=== PATIENT | female | born 2000 | race African-American/Black ===

== ENCOUNTER 2022-04-15 13:00 | Emergency (ER) | payer OTHER, SELFPAY ==
--- NOTE | ~2022-04-15 | US_ITS ---
EXAMINATION: US pelvic complete w TV DATE: 04/15/2022 13:58 INDICATION: Left adnexal pain TECHNIQUE: Multiple transabdominal and endovaginal sonographic images of the pelvis were obtained. COMPARISON: None. FINDINGS: The uterus measures 5.9 x 4.2 x 2.7 cm. The endometrial complex measures 7 mm. A nabothian cyst is noted in the cervix. The right ovary measures 2.4 x 1.7 x 1.7 cm. The left ovary measures 1.9 x 2.2 x 2.0 cm. There is normal vascular flow in the ovaries. There is no free fluid in the pelvis. There is questionable wall thickening of the urinary bladder. IMPRESSION: 1. Possible wall thickening of the urinary bladder which could be due to incomplete distention. Consi cooper correlation with urinalysis. Reviewed, dictated and finalized at location B. ITECTURE TECHNICIAN IMPRESSION: 1. Possible wall thickening of the urinary bladder which could be due to incomp lete distention. Consider correlation with urinalysis.
[2022-04-15 13:06] VITALS: BP 131/69; PULSE 85; RESP 16; TEMP 36.4; O2SAT 100
--- NOTE | 2022-04-15 13:32 | PC.NURSE ---
Patient taken to ultrasound
[2022-04-15 14:10] LABS: Basophils Percent Auto 0.6 % (0.2-1.2); Eosinophils Absolute Auto 0.2 K/mm3 (0-0.3); Eosinophils Percent Auto 2.7 % (0-4.4); Hematocrit 36.9 % (37.0-47.0); Hemoglobin 12.1 g/dL (12.0-15.0); Immature Granulocyte Absolute 0.01 K/mm3 (0.00-0.031); Immature Granulocyte Percent A 0.1 % (0-0.5); Lymphocytes Absolute Auto 2.43 K/mm3 (0.9-3.2); Lymphocytes Percent Auto 36.2 % (18.3-44.2); Mean Corpuscular HGB Conc 32.8 g/dl (32-36); Mean Corpuscular Hemoglobin 31.1 pg (26-34); Mean Corpuscular Volume 94.9 fl (80-100); Monocytes Absolute Auto 0.5 K/mm3 (0.1-0.6); Monocytes Percent Auto 7.2 % (2.6-8.5); Neutrophils Absolute Auto 3.6 K/mm3 (1.3-6.7); Neutrophils Percent Auto 53.2 % (45.5-73.1); Platelet Count Result 398 k/mm3 (150-375); Red Blood Count 3.89 M/mm3 (4.2-5.4); Red Cell Distribution Width 12.1 % (11.5-14.5); White Blood Count 6.7 K/mm3 (4.5-10.0)
[2022-04-15 14:16] LABS: Anion Gap 8 mmol/L (8-16); Blood Urea Nitrogen 7 mg/dL (7-17); Calcium 8.8 mg/dL (8.4-10.2); Carbon Dioxide 26 mmol/L (22-30); Chloride 105 mmol/L (98-107); Estimated CRCL calculation 84 ml/min; Estimated Glomerular Filt Rate > 60; Glucose 96 mg/dL (65-110); Potassium 3.7 mmol/L (3.4-5.0); Sodium 139 mmol/L (137-145)
[2022-04-15 14:19] LABS: Appearance Urine Slightly Cloudy (Clear); Bilirubin Urine Negative (Negative); Blood Urine 3+ (Negative); Color Urine Light Yellow (Yellow); Glucose Urine UA Negative (Negative); Ketones Urine Negative (Negative); Leukocyte Esterase Ur Negative LEU/UL (Negative); Nitrate Urine Negative (Negative); Protein Urine Negative (Negative); Urobilinogen Urine 0.2 mg/dL (<2.0)
--- NOTE | 2022-04-15 14:28 | PC.NURSE ---
Prior to giving IV Toradol, patient states she cannot take NSAIDS due to her Lupus, SAMANTHA Reynaga notified.
[2022-04-15 14:29] LABS: Bacteria Urine Trace /hpf; Mucus Urine Rare /lpf; RBC Urine >75 /hpf (0-2); Squamous Epithelial Cell Urine Occasional /hpf (Few)
[2022-04-15 14:43] LABS: Add Urine Microscopic? YES
[2022-04-15] MEDS: ACETAMINOPHEN 500 MG TABLET 1000 MG PO (15:02)
[2022-04-15 15:32] VITALS: TEMP 36.4
--- NOTE | 2022-04-15 15:45 | ED.GENADULT ---
HPI - General Adult General Chief complaint: Vaginal Bleeding Stated complaint: abd pain/vag bleeding Time Seen by Provider: 04/15/22 13:11 History of Present Illness HPI narrative: Patient is a 22-year-old female who presents ER with vaginal bleeding. Ongoing for last 4 days. Unsure if she is as her LMP was in January. She is having abdominal cramping. No dysuria fevers or chills. No abnormal vaginal discharge. Cannot report any alleviating factors. No radiation of pain. Related Data Allergies Allergy/AdvReac Type Severity Reaction Status Date / Time No Known Allergies Allergy Verified 04/15/22 13:22 Review of Systems Review of Systems: All systems reviewed & are unremarkable except as noted in HPI and below Constitutional: Constitutional: Denies chills, Denies fatigue and Denies fever(s) ENT: Denies nasal congestion and Denies sore throat Cardiovascular: Cardiovascular: Denies chest pain, Denies radiating jaw, neck or arm pain and Denies slow heart rate Respiratory: Respiratory: Denies cough and Denies dyspnea Gastrointestinal: Gastrointestinal: Reports abdominal pain, Denies diarrhea, Denies nausea and Denies vomiting Genitourinary: Genitourinary: Reports abnormal vaginal bleeding, Denies nocturia, Denies dysuria and Reports pelvic pain PMFSH Past Medical History Medical History (Updated 04/15/22 @ 15:54 by Hood Reynaga MD) Healthy female adult Surgical History Surgical History (Updated 04/15/22 @ 15:47 by Hood Reynaga MD) No history of previous surgery Social History Social History (Updated 04/15/22 @ 15:47 by Hood Reynaga MD) Smoking status: Never smoker Exam Narrative: GENERAL: Well-appearing, well-nourished, and in no acute distress. HEAD: Normocephalic, atraumatic. ENT: Mucous membranes moist. CHEST: Clear to auscultation. No respiratory distress. HEART: Regular rate and rhythm. Normal peripheral pulses. ABDOMEN: Soft, mild tenderness left adnexal/lower quadrant area, nondistended. EXTREMITIES: Normal range of motion. No edema. SKIN: Warm, dry, no rash. NEURO: Alert and oriented x3. PSYCH: Normal mood and affect. Course Course Emergency Course: Patient informed of results. Will treat for UTI. No torsion or ruptured cyst. Vital Signs Vital signs: Vital Signs Temperature 97.5 F L 04/15/22 13:06 Pulse Rate 85 04/15/22 13:06 Respiratory Rate 16 04/15/22 13:06 Blood Pressure 131/69 04/15/22 13:06 Pulse Oximetry 100 04/15/22 13:06 Oxygen Delivery Room Air 04/15/22 13:06 Temperature 97.5 F L 04/15/22 13:06 Pulse Rate 85 04/15/22 13:06 Respiratory Rate 16 04/15/22 13:06 Blood Pressure 131/69 04/15/22 13:06 Pulse Oximetry 100 04/15/22 13:06 Oxygen Delivery Room Air 04/15/22 13:06 Medical Decision Making Vital Signs Vital Signs: Vital Signs Temperature 97.5 F L 04/15/22 13:06 Pulse Rate 85 04/15/22 13:06 Respiratory Rate 16 04/15/22 13:06 Blood Pressure 131/69 04/15/22 13:06 Pulse Oximetry 100 04/15/22 13:06 Oxygen Delivery Room Air 04/15/22 13:06 Temperature 97.5 F L 04/15/22 13:06 Pulse Rate 85 04/15/22 13:06 Respiratory Rate 16 04/15/22 13:06 Blood Pressure 131/69 04/15/22 13:06 Pulse Oximetry 100 04/15/22 13:06 Oxygen Delivery Room Air 04/15/22 13:06 Lab Data Result diagrams: 04/15/22 14:00 04/15/22 14:00 Labs: Lab Results 04/15/22 04/15/22 04/15/22 Range/Units 14:00 14:00 14:10 WBC 6.7 (4.5-10.0) K/mm3 RBC 3.89 L (4.2-5.4) M/mm3 Hgb 12.1 (12.0-15.0) g/dL Hct 36.9 L (37.0-47.0) % MCV 94.9 (80-100) fl MCH 31.1 (26-34) pg MCHC 32.8 (32-36) g/dl RDW 12.1 (11.5-14.5) % Plt Count 398 H (150-375) k/mm3 MPV 10.0 (7.4-10.4) fl Immature Gran % (Auto) 0.1 (0-0.5) % Neut % (Auto) 53.2 (45.5-73.1) % Lymph % (Auto) 36.2 (18.3-44.2) % [place] % (Auto) 7.2
[2022-04-15 16:35] VITALS: BP 129/78; PULSE 81; RESP 18; TEMP 36.6; O2SAT 98
== END 2022-04-15 16:35 | disposition home or self-care (01) ==
PROVIDERS: Emergency Provider Emergency Medicine
DX: N93.9 Abnormal uterine and vaginal bleeding, unspecified (principal); N39.0 Urinary tract infection, site not specified
CPT/HCPCS: 36415; 76830; 76856; 80048; 81001; 81025; 85025; 87086; 99284; A9270; J1885

== ENCOUNTER 2022-07-04 10:58 | Emergency (ER) | payer OTHER, SELFPAY ==
--- NOTE | ~2022-07-04 | US_ITS ---
EXAMINATION: US OB <=14 wk fetus w TV DATE: 07/04/2022 13:19 INDICATION: Unsure of gestational dates. Patient and distress. TECHNIQUE: Real-time transabdominal and transvaginal obstetric ultrasound. FINDINGS: No prior studies for comparison. The uterus measures 7.4 x 4.6 x 5.8 cm. There is an intrauterine gestational sac, with pole jeancarlos ntified. The crown rump length measures 0.95 cm, which correlates with a estimated gestational age o f 7 weeks 0 days. heart tones are identified measuring 153 BPM. There is a corpus luteal cyst of the right ovary measuring 2.3 cm. IMPRESSION: 1. SL IUP with an EGA of 7 weeks, 0 days (EDC by current ultrasound of 02/18/2023). Reviewed, dictated and finalized at location A. ING TECHNICIAN IMPRESSION: 1. SL IUP with an EGA of 7 weeks, 0 days (EDC by current ultrasound of ).
[2022-07-04 11:01] VITALS: BP 125/79; PULSE 90; RESP 18; TEMP 36.5; O2SAT 100
[2022-07-04 11:23] LABS: Basophils Percent Auto 0.4 % (0.2-1.2); Eosinophils Absolute Auto 0.1 K/mm3 (0-0.3); Eosinophils Percent Auto 1.7 % (0-4.4); Hematocrit 35.3 % (37.0-47.0); Immature Granulocyte Absolute 0.03 K/mm3 (0.00-0.031); Immature Granulocyte Percent A 0.4 % (0-0.5); Lymphocytes Absolute Auto 1.84 K/mm3 (0.9-3.2); Lymphocytes Percent Auto 22.6 % (18.3-44.2); Mean Corpuscular Hemoglobin 31.3 pg (26-34); Mean Corpuscular Volume 91.9 fl (80-100); Mean Platelet Volume 10.4 fl (7.4-10.4); Monocytes Absolute Auto 0.7 K/mm3 (0.1-0.6); Monocytes Percent Auto 8.7 % (2.6-8.5); Neutrophils Absolute Auto 5.4 K/mm3 (1.3-6.7); Neutrophils Percent Auto 66.2 % (45.5-73.1); Platelet Count Result 338 k/mm3 (150-375); Red Blood Count 3.84 M/mm3 (4.2-5.4); Red Cell Distribution Width 11.9 % (11.5-14.5); White Blood Count 8.1 K/mm3 (4.5-10.0)
[2022-07-04 11:33] LABS: Alanine Aminotransferase 19 U/L (6-35); Albumin Level 4.4 g/dL (3.5-5.1); Alkaline Phosphatase 67 U/L (38-126); Anion Gap 6 mmol/L (8-16); Aspartate Amino Transferase 21 U/L (14-36); Bilirubin,Total 0.7 mg/dL (0.2-1.3); Blood Urea Nitrogen 5 mg/dL (7-17); Carbon Dioxide 24 mmol/L (22-30); Chloride 104 mmol/L (98-107); Estimated CRCL calculation 106 ml/min; Estimated Glomerular Filt Rate > 60; Glucose 105 mg/dL (65-110); Lipase 29 U/L (23-300); Potassium 3.5 mmol/L (3.4-5.0); Sodium 134 mmol/L (137-145)
[2022-07-04 11:34] LABS: Appearance Urine Clear (Clear); Bilirubin Urine 1+ (Negative); Blood Urine Negative (Negative); Color Urine Yellow (Yellow); Glucose Urine UA Negative (Negative); Ketones Urine Trace mg/dL (Negative); Leukocyte Esterase Ur Negative LEU/UL (Negative); Nitrate Urine Negative (Negative); Protein Urine 1+ mg/dL (Negative); Specific Grav Ur 1.025 (1.001-1.035); pH Urine 6.5 (5.0-9.0)
[2022-07-04 11:39] LABS: Mucus Urine Heavy /lpf; Squamous Epithelial Cell Urine Few /hpf (Few)
[2022-07-04 11:43] LABS: Add Urine Microscopic? YES
[2022-07-04] MEDS: cefTRIAXone 1 GM VIAL 0.5 GM IM (12:33)
[2022-07-04] MEDS: LIDOCAINE HCL 2% LOCAL INJ 20 ML VIAL (12:34)
--- NOTE | 2022-07-04 15:25 | ED.GENADULT ---
HPI - General Adult General Chief complaint: Abdominal Pain Stated complaint: abd pain, unsure if preg Time Seen by Provider: 07/04/22 11:08 History of Present Illness HPI narrative: Patient is a 22-year-old female who presents ER with lower abdominal cramping. Ongoing over the last couple days. She is concerned she could potentially be . LMP 6 months ago. Bedside test positive here. She is a G1, P0. No vaginal bleeding or leakage of fluid. No vaginal discharge. No aggravating or alleviating factors to the abdominal cramping. Patient does have history of lupus but takes no medication for it. Related Data Allergies Allergy/AdvReac Type Severity Reaction Status Date / Time No Known Allergies Allergy Verified 07/04/22 11:08 Review of Systems Constitutional: Constitutional: Denies chills and Denies fever(s) Gastrointestinal: Gastrointestinal: Reports abdominal pain, Denies nausea and Denies vomiting Genitourinary: Genitourinary: Denies abnormal vaginal bleeding, Denies hematuria, Denies nocturia, Denies dysuria, Denies pelvic pain, Denies flank pain and Denies vaginal discharge PMFSH Past Medical History Medical History (Updated 07/04/22 @ 15:40 by Hood Reynaga MD) Lupus Surgical History Surgical History (Updated 04/15/22 @ 15:47 by Hood Reynaga MD) No history of previous surgery Social History Social History (Updated 04/15/22 @ 15:47 by Hood Reynaga MD) Smoking status: Never smoker Exam Narrative: GENERAL: Well-appearing, well-nourished, and in no acute distress. HEAD: Normocephalic, atraumatic. CHEST: Clear to auscultation. No respiratory distress. HEART: Regular rate and rhythm. Normal peripheral pulses. ABDOMEN: Soft, nontender, nondistended. EXTREMITIES: Normal range of motion. No edema. SKIN: Warm, dry, no rash. NEURO: Alert and oriented x3. PSYCH: Normal mood and affect. Course Course Emergency Course: Patient informed she has an IUP at 7 weeks. She has follow-up with her OB scheduled for tomorrow. No urinary symptoms but will place on short course antibiotic given abnormal urine. We will also prescribe vitamins. Discussed this with patient. Vital Signs Vital signs: Vital Signs Temperature 97.7 F 07/04/22 11:01 Pulse Rate 90 01/29/23 11:01 Respiratory Rate 18 07/04/22 11:01 Blood Pressure 125/79 07/04/22 11:01 Pulse Oximetry 100 07/04/22 11:01 Oxygen Delivery Room Air 07/04/22 11:01 Temperature 97.7 F 07/04/22 11:01 Pulse Rate 90 07/04/22 11:01 Respiratory Rate 18 07/04/22 11:01 Blood Pressure 125/79 07/04/22 11:01 Pulse Oximetry 100 07/04/22 11:01 Oxygen Delivery Room Air 07/04/22 11:01 Medical Decision Making Vital Signs Vital Signs: Vital Signs Temperature 97.7 F 07/04/22 11:01 Pulse Rate 90 07/04/22 11:01 Respiratory Rate 18 07/04/22 11:01 Blood Pressure 125/79 07/04/22 11:01 Pulse Oximetry 100 07/04/22 11:01 Oxygen Delivery Room Air 07/04/22 11:01 Temperature 97.7 F 07/04/22 11:01 Pulse Rate 90 07/04/22 11:01 Respiratory Rate 18 07/04/22 11:01 Blood Pressure 125/79 07/04/22 11:01 Pulse Oximetry 100 07/04/22 11:01 Oxygen Delivery Room Air 07/04/22 11:01 Lab Data 07/04/22 11:14 07/04/22 11:14 Labs: Lab Results 07/04/22 07/04/22 07/04/22 Range/Units 11:14 11:14 11:14 WBC 8.1 (4.5-10.0) K/mm3 RBC 3.84 L (4.2-5.4) M/mm3 Hgb 12.0 (12.0-15.0) g/dL Hct 35.3 L (37.0-47.0) % MCV 91.9 (80-100) fl MCH 31.3 (26-34) pg MCHC 34.0 (32-36) g/dl RDW 11.9 (11.5-14.5) % Plt Count 338 (150-375) k/mm3 MPV 10.4 (7.4-10.4) fl Immature Gran % (Auto) 0.4 (0-0.5) % Neut % (Auto) 66.2 (45.5-73.1) % Lymph % (Auto) 22.6 (18.3-44.2) % [place] % (Auto) 8.7 H (2.6-8.5) % Eos % (Auto) 1.7 (0-4.4) % Baso % (Auto) 0.4 (0.2-1.2) % Lymph # (Auto
[2022-07-04 15:44] VITALS: BP 121/82; PULSE 84; RESP 18; O2SAT 99
== END 2022-07-04 15:47 | disposition home or self-care (01) ==
PROVIDERS: Emergency Provider Emergency Medicine
DX: O26.891 Other specified pregnancy related conditions, first trimester (principal); R10.30 Lower abdominal pain, unspecified; O23.41 Unspecified infection of urinary tract in pregnancy, first trimester; Z3A.01 Less than 8 weeks gestation of pregnancy
CPT/HCPCS: 36415; 76801; 76817; 80053; 81001; 81025; 83690; 85025; 87086; 96372; 99284; J0696

== ENCOUNTER 2022-07-12 10:39 | Outpatient (CLI) | payer OTHER, SELFPAY ==
[2022-07-12 11:16] LABS: Basophils Percent Auto 0.3 % (0.2-1.2); Eosinophils Percent Auto 0.5 % (0-4.4); Hematocrit 34.9 % (37.0-47.0); Hemoglobin 11.9 g/dL (12.0-15.0); Immature Granulocyte Absolute 0.02 K/mm3 (0.00-0.031); Immature Granulocyte Percent A 0.3 % (0-0.5); Lymphocytes Absolute Auto 1.87 K/mm3 (0.9-3.2); Lymphocytes Percent Auto 24.2 % (18.3-44.2); Mean Corpuscular HGB Conc 34.1 g/dl (32-36); Mean Corpuscular Hemoglobin 31.4 pg (26-34); Mean Corpuscular Volume 92.1 fl (80-100); Mean Platelet Volume 10.3 fl (7.4-10.4); Monocytes Absolute Auto 0.6 K/mm3 (0.1-0.6); Monocytes Percent Auto 7.8 % (2.6-8.5); Neutrophils Absolute Auto 5.2 K/mm3 (1.3-6.7); Neutrophils Percent Auto 66.9 % (45.5-73.1); Platelet Count Result 309 k/mm3 (150-375); Red Blood Count 3.79 M/mm3 (4.2-5.4); Red Cell Distribution Width 11.8 % (11.5-14.5); White Blood Count 7.7 K/mm3 (4.5-10.0)
[2022-07-12 12:04] LABS: HIV 1/2 Ab P24 Ag Result Negative (Negative)
[2022-07-12 12:08] LABS: Hepatitis B Surface Antigen Negative (Negative); Rubella IgG Antibody 92.4 IU/ML
[2022-07-13 15:17] LABS: Rapid Plasma Reagin Non-Reactive (NonReactive)
== END 2022-07-12 10:40 | disposition home or self-care (01) ==
PROVIDERS: Visit Provider Student in an Organized Health Care Education/Training Program
DX: N94.89 Other specified conditions associated with female genital organs and menstrual cycle (principal)
CPT/HCPCS: 36415; 84702; 85025; 85660; 86592; 86644; 86703; 86747; 86762; 86787; 86850; 86900; 86901; 87086; 87340; G0432

== ENCOUNTER 2022-08-19 11:40 | Emergency (ER) | payer OTHER, SELFPAY ==
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
[2022-08-19 11:46] VITALS: BP 113/73; PULSE 92; RESP 16; TEMP 36.8; O2SAT 99
[2022-08-19] MEDS: ACETAMINOPHEN 500 MG TABLET 1000 MG PO (13:12)
[2022-08-19 13:29] LABS: Basophils Percent Auto 0.4 % (0.2-1.2); Eosinophils Absolute Auto 0.1 K/mm3 (0-0.3); Eosinophils Percent Auto 0.6 % (0-4.4); Hematocrit 34.6 % (37.0-47.0); Hemoglobin 11.8 g/dL (12.0-15.0); Immature Granulocyte Absolute 0.02 K/mm3 (0.00-0.031); Immature Granulocyte Percent A 0.2 % (0-0.5); Lymphocytes Absolute Auto 1.98 K/mm3 (0.9-3.2); Lymphocytes Percent Auto 24.4 % (18.3-44.2); Mean Corpuscular HGB Conc 34.1 g/dl (32-36); Mean Corpuscular Hemoglobin 31.9 pg (26-34); Mean Corpuscular Volume 93.5 fl (80-100); Mean Platelet Volume 9.8 fl (7.4-10.4); Monocytes Absolute Auto 0.5 K/mm3 (0.1-0.6); Monocytes Percent Auto 6.5 % (2.6-8.5); Neutrophils Absolute Auto 5.5 K/mm3 (1.3-6.7); Neutrophils Percent Auto 67.9 % (45.5-73.1); Platelet Count Result 324 k/mm3 (150-375); Red Cell Distribution Width 12.6 % (11.5-14.5); White Blood Count 8.1 K/mm3 (4.5-10.0)
[2022-08-19 13:43] LABS: Alanine Aminotransferase 15 U/L (6-35); Albumin Level 4.1 g/dL (3.5-5.1); Alkaline Phosphatase 68 U/L (38-126); Anion Gap 9 mmol/L (8-16); Aspartate Amino Transferase 21 U/L (14-36); Bilirubin,Total 0.9 mg/dL (0.2-1.3); Blood Urea Nitrogen 5 mg/dL (7-17); Calcium 8.8 mg/dL (8.4-10.2); Carbon Dioxide 22 mmol/L (22-30); Chloride 106 mmol/L (98-107); Estimated CRCL calculation 139 ml/min; Estimated Glomerular Filt Rate > 60; Glucose 79 mg/dL (65-110); Lipase 24 U/L (23-300); Potassium 3.7 mmol/L (3.4-5.0); Sodium 137 mmol/L (137-145)
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
== END 2022-08-19 16:36 | disposition home or self-care (01) ==
PROVIDERS: Emergency Provider Emergency Medicine
DX: O9A.212 Injury, poisoning and certain other consequences of external causes complicating pregnancy, second trimester (principal); S09.90XA Unspecified injury of head, initial encounter; O99.612 Diseases of the digestive system complicating pregnancy, second trimester; K76.0 Fatty (change of) liver, not elsewhere classified; Z3A.14 14 weeks gestation of pregnancy; V40.5XXA Car driver injured in collision with pedestrian or animal in traffic accident, initial encounter
CPT/HCPCS: 36415; 76700; 76816; 80053; 83690; 85025; 85460; 86850; 86900; 86901; 99284; A9270

== ENCOUNTER 2022-11-30 13:28 | Outpatient (CLI) | payer OTHER, SELFPAY ==
[2022-11-30 15:11] LABS: Basophils Percent Auto 0.4 % (0.2-1.2); Eosinophils Absolute Auto 0.1 K/mm3 (0-0.3); Eosinophils Percent Auto 0.7 % (0-4.4); Hematocrit 33.7 % (37.0-47.0); Hemoglobin 11.2 g/dL (12.0-15.0); Immature Granulocyte Absolute 0.08 K/mm3 (0.00-0.031); Immature Granulocyte Percent A 0.8 % (0-0.5); Lymphocytes Absolute Auto 1.91 K/mm3 (0.9-3.2); Lymphocytes Percent Auto 18.1 % (18.3-44.2); Mean Corpuscular HGB Conc 33.2 g/dl (32-36); Mean Corpuscular Hemoglobin 33.2 pg (26-34); Monocytes Absolute Auto 0.7 K/mm3 (0.1-0.6); Monocytes Percent Auto 6.7 % (2.6-8.5); Neutrophils Absolute Auto 7.8 K/mm3 (1.3-6.7); Neutrophils Percent Auto 73.3 % (45.5-73.1); Platelet Count Result 327 k/mm3 (150-375); Red Blood Count 3.37 M/mm3 (4.2-5.4); Red Cell Distribution Width 12.6 % (11.5-14.5); White Blood Count 10.6 K/mm3 (4.5-10.0)
[2022-11-30 15:12] LABS: Glucose 1 Hour PP 50gm Dose 109 mg/dL
[2022-11-30 15:51] LABS: HIV 1/2 Ab P24 Ag Result Negative (Negative)
== END 2022-11-30 13:29 | disposition home or self-care (01) ==
LOC: ANHLAB 13:29
PROVIDERS: Visit Provider Obstetrics & Gynecology
DX: Z34.90 Encounter for supervision of normal pregnancy, unspecified, unspecified trimester (principal)
CPT/HCPCS: 36415; 82947; 85025; 86703; G0432

== ENCOUNTER 2022-11-30 15:06 | Observation (INO) | payer OTHER, SELFPAY ==
[2022-11-30] VITALS (16 sets, daily range): BP systolic 103–114; BP diastolic 58–72; PULSE 89–105; RESP 16; TEMP 36.3; O2SAT 99–100; BMI 30.1
--- NOTE | 2022-11-30 15:45 | OBADM ---
This patient, Jazmine Romero, admitted to the OB room 116 for observation. Patient/family oriented to hospital policies and general routines including ID bracelet, bed and alarms, visiting hours, pain management, procedures, bathroom and other care routines, personal items, smoking policy, room service/diet, and visiting hours. Patient/Family are encouraged to report perceived risks to care and to ask questions if they do not understand what they are told or what they should do.
[2022-11-30 16:20] LABS: Appearance Urine Clear (Clear); Bacteria Urine 1+ /hpf; Bilirubin Urine Negative (Negative); Blood Urine Negative (Negative); Color Urine Yellow (Yellow); Glucose Urine UA Trace mg/dL (Negative); Ketones Urine Negative (Negative); Leukocyte Esterase Ur Trace LEU/UL (Negative); Nitrate Urine Negative (Negative); Non Pathogenic Casts 0-2; Protein Urine Negative (Negative); RBC Urine 0-2 /hpf (0-2); Specific Grav Ur 1.015 (1.001-1.035); Squamous Epithelial Cell Urine Occasional /hpf (Few)
[2022-11-30 16:30] LABS: Add Urine Microscopic? YES
--- NOTE | 2022-12-02 07:32 | PM.OBTRLD ---
OB - Triage/Final Diagnosis Visit Information Reason for evaluation: threatened labor Comments/Additional reasons for admission: I have assessed the risk for this patient, Jazmine Romero, and determined that she would benefit from observation care. Evaluation Laboratory results: Laboratory Tests 11/30/22 16:04 Urine Color Yellow Urine Appearance Clear Urine pH 7.0 Ur Specific [place] 1.015 Urine Protein Negative Urine Glucose (UA) Trace H Urine Ketones Negative Ur Blood (Man) Negative Urine Nitrate Negative Urine Bilirubin Negative Urine Urobilinogen 1.0 Leukocyte Esterase Rfl Trace H Urine RBC 0-2 Urine WBC 6-10 H Ur Squamous Epith Cells Occasional Urine Bacteria 1+ H Urine Casts 0-2
== END 2022-11-30 17:10 | disposition home or self-care (01) ==
PROVIDERS: Admitting Provider Student in an Organized Health Care Education/Training Program; Visit Provider Obstetrics & Gynecology
DX: O47.03 False labor before 37 completed weeks of gestation, third trimester (principal); O26.893 Other specified pregnancy related conditions, third trimester; R10.9 Unspecified abdominal pain; Z3A.28 28 weeks gestation of pregnancy
CPT/HCPCS: 36415; 81001; 82947; 85025; 86703; 87086; 87088; G0378; G0379; G0432

== ENCOUNTER 2023-02-05 12:34 | Observation (INO) | payer OTHER, SELFPAY ==
[2023-02-05 13:55] VITALS: TEMP 36.6
--- NOTE | 2023-02-05 14:02 | OBADM ---
This patient, Jazmine Romero, admitted to the OB room Labor/Delivery/Recovery 103 for observation. Patient/family oriented to hospital policies and general routines including ID bracelet, bed and alarms, visiting hours, pain management, procedures, bathroom and other care routines, personal items, smoking policy, room service/diet, and visiting hours. Patient/Family are encouraged to report perceived risks to care and to ask questions if they do not understand what they are told or what they should do.
--- NOTE | 2023-02-05 14:40 | PM.OBTRLD ---
OB - Triage/Final Diagnosis Visit Information Comments/Additional reasons for admission: I have assessed the risk for this patient, Jazmine Romero, and determined that she would benefit from observation care. Evaluation Vital signs: Vital Signs - 24 hr 02/05/23 13:55 Temperature 97.9 F Final Diagnosis (1) Abdominal pain affecting : Code(s): O26.899 - Other specified related conditions, unspecified trimester; R10.9 - Unspecified abdominal pain Status: Inactive
== END 2023-02-05 14:10 | disposition home or self-care (01) ==
PROVIDERS: Admitting Provider Obstetrics & Gynecology; Visit Provider Obstetrics & Gynecology
DX: O26.893 Other specified pregnancy related conditions, third trimester (principal); R10.9 Unspecified abdominal pain; Z3A.37 37 weeks gestation of pregnancy
CPT/HCPCS: G0378; G0379

== ENCOUNTER 2023-02-07 16:45 | Observation (INO) | payer OTHER, SELFPAY ==
--- NOTE | 2023-02-07 16:45 | OBADM ---
This patient, Jazmine Romero, admitted to the OB room Labor/Delivery/Recovery 106 for observation. Pt is here for contractions every 5 min. no leaking fluid. observation for r/o labor Patient/family oriented to hospital policies and general routines including ID bracelet, bed and alarms, visiting hours, pain management, procedures, bathroom and other care routines, personal items, smoking policy, room service/diet, and visiting hours. Patient/Family are encouraged to report perceived risks to care and to ask questions if they do not understand what they are told or what they should do.
--- NOTE | 2023-02-14 13:32 | PM.OBTRLD ---
OB - Triage/Final Diagnosis Visit Information Comments/Additional reasons for admission: I have assessed the risk for this patient, Jazmine Romero, and determined that she would benefit from observation care. Final Diagnosis (1) False labor: Code(s): O47.9 - False labor, unspecified Status: Acute
== END 2023-02-07 18:07 | disposition home or self-care (01) ==
PROVIDERS: Admitting Provider Obstetrics & Gynecology; Visit Provider Obstetrics & Gynecology
DX: O47.1 False labor at or after 37 completed weeks of gestation (principal); Z3A.38 38 weeks gestation of pregnancy
CPT/HCPCS: G0378; G0379